=== PATIENT | male | born 1945 | race Caucasian/White ===

== ENCOUNTER 2017-02-27 20:07 | Emergency (ER) | payer MEDICARE, OTHER ==
[2015-09-29 10:44] VITALS: BMI 28.1
[~2017-02-27 20:07] MED LIST: CARDIZEM CD240 MG PO; COUMADIN5 MG PO; COUMADIN7.5 MG PO; GLUCOPHAGE500 MG PO; GLUCOTROL 5 MG T5 MG PO; LISINOPRIL5 MG PO; PROZAC20 MG PO; ZOCOR80 MG PO
== END 2017-02-27 22:25 | disposition home or self-care (01) ==
LOC: D.ER 20:07
DX: S31.811A Laceration without foreign body of right buttock, initial encounter (principal); W19.XXXA Unspecified fall, initial encounter; Y93.89 Activity, other specified; Y92.017 Garden or yard in single-family (private) house as the place of occurrence of the external cause; M54.5 Low back pain; Z86.73 Personal history of transient ischemic attack (TIA), and cerebral infarction without residual deficits; I10 Essential (primary) hypertension; E11.9 Type 2 diabetes mellitus without complications

== ENCOUNTER 2017-10-30 17:38 | Emergency (ER) | payer MEDICARE, OTHER ==
[2015-09-29 10:44] VITALS: BMI 28.1
[2017-10-30 18:13] LABS: BASOPHILS 0.1 % (0-2); EOSINOPHILS 0.2 % (0-7); HEMATOCRIT 33.3 % (42.0-54.0); IMMATURE GRANULOCYTES 0.3 % (0-5); LYMPHOCYTES 10.4 % (15-50); MCH 30.2 pg (26.0-34.0); MCV 91.5 fL (80.0-100.0); MEAN PLATELET VOLUME 10.2 fL (7.4-10.4); MONOCYTES 16.5 % (2-11); NEUTROPHILS 72.5 % (40-80); PLATELET COUNT 200 10x3/uL (130-400); RBC 3.64 10x6/uL (4.20-6.10); RDW 15.2 % (11.5-14.5); WBC 9.3 10x3/uL (4.8-10.8)
[2017-10-30 18:39] LABS: ALBUMIN 3.5 g/dL (3.4-5.0); ALKALINE PHOSPHATASE 65 U/L (46-116); ALT (SGPT) 20 U/L (10-68); BILIRUBIN - TOTAL 0.39 mg/dL (0.2-1.3); CALC OSMOLALITY 286 mosm/kg (275-300); CALCIUM 8.6 mg/dL (8.5-10.1); CARBON DIOXIDE 27.2 mmol/L (21.0-32.0); CHLORIDE - SERUM 104 mmol/L (98-107); CREATININE - SERUM 0.9 mg/dL (0.6-1.3); GLUCOSE 166 mg/dL (74-106); POTASSIUM - SERUM 4.4 mmol/L (3.5-5.1); SODIUM 141 mmol/L (136-145); UREA NITROGEN 17 mg/dL (7-18); eGFR NON AFRICAN AMERICAN 88 mL/min (90-120)
[2017-10-30 19:45] LABS: APPEARANCE CLEAR (CLEAR); BILIRUBIN NEGATIVE (NEGATIVE); COLOR DK YELLOW (YELLOW); GLUCOSE NEGATIVE (NEGATIVE); KETONE MODERATE mg/dL (NEGATIVE); NITRITE NEGATIVE (NEGATIVE); PROTEIN TRACE mg/dL (NEGATIVE); SPECIFIC GRAVITY 1.025 (1.005-1.020); UROBILINOGEN NORMAL (NORMAL)
[2017-10-30 19:46] LABS: WHITE CELLS - URINE 0-5 /hpf (0-5)
[2017-10-30 19:47] LABS: MUCUS <1+ /lpf (NONE SEEN)
== END 2017-10-30 22:12 | disposition home or self-care (01) ==
LOC: D.ER 17:38
PROVIDERS: Family Medicine
DX: S70.01XA Contusion of right hip, initial encounter (principal); W01.0XXA Fall on same level from slipping, tripping and stumbling without subsequent striking against object, initial encounter; Y93.89 Activity, other specified; Y92.019 Unspecified place in single-family (private) house as the place of occurrence of the external cause; M54.5 Low back pain; Z86.73 Personal history of transient ischemic attack (TIA), and cerebral infarction without residual deficits; I10 Essential (primary) hypertension; E11.9 Type 2 diabetes mellitus without complications

== ENCOUNTER 2017-11-04 15:55 | Observation (INO) | payer MEDICARE, OTHER ==
[~2017-11-04] VITALS: Ht 172.7 cm; Wt 79.5 kg
--- NOTE | ~2017-11-04 | HP ---
PATIENT: FRANCISCO VICENTE MEDICAL RECORD: [id number] ACCOUNT: [id number] LOCATION:[id number] : 45 ADMISSION DATE: 11/04/17 HISTORY AND PHYSICAL EXAMINATION REASON FOR ADMISSION: Severe hip and right groin pain post-fall. HISTORY OF PRESENT ILLNESS: The patient is a 72-year-old male with history of remote left hemispheric CVA which has left difficulty to ambulate. The patient fell a week ago at home on his right buttocks and hip area. He was unable to ambulate whatsoever and had severe pain and came to the ED. A pelvic x-ray was performed on 10/30/2017, showing no osteopathic abnormality except for osteoarthritis of the hips, right greater than left. A chest x-ray was performed that was unremarkable. He was sent home on hydrocodone 5 mg q.4 hours. His said he has quit eating. His pain has gotten worse. He had extensive bruising on his buttocks down the back of his leg. She could not control his pain and therefore has now been admitted to observation for further evaluation. 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 PAST SURGICAL HISTORY: He had a bilateral carotid endarterectomies and spinal surgery for lumbar disc disease. Superior hole craniotomy 2013 for subdural. SOCIAL HISTORY: Remote smoker, none now, lives with his who is his 100% caregiver. HOME MEDICATIONS: [place] 5/325 one q.4-6 hours for pain, Coumadin 5 mg at 5 p.m. daily, simvastatin 80 mg at bedtime, metformin 500 mg b.i.d., Cartia XL 240 mg daily, and citalopram 20 mg daily. ALLERGIES: None known. FAMILY HISTORY: Noncontributory. REVIEW OF SYSTEMS: CONSTITUTIONAL: He has been fatigued for the last week. He had poor appetite and poor oral intake. No fever. HEENT: No recent visual change, sinus congestion, or sore throat. He has chronic trouble speaking. RESPIRATORY: No shortness of breath. CARDIAC: No chest pain. GASTROINTESTINAL: He has had some nausea without vomiting. No constipation. GENITOURINARY: He has nocturia twice nightly. MUSCULOSKELETAL: He has had severe pain in his right hip and groin area that radiates from the hip to the groin and suprapubic area. Place of his hip causes increased pain, he states. INTEGUMENT: Marked bruising in his right buttocks and posterior thigh. PSYCHIATRIC: Denies depress mood. PHYSICAL EXAMINATION: HISTORY AND PHYSICAL [id number] FRANCISCO VICENTE SR VITAL SIGNS: Blood pressure 140/90, heart rate 70 and regular. He is afebrile. HEENT: Normocephalic. Eyes are clear. Pupils are reactive. Gag is intact. NECK: Supple, with faint bruits in both carotids and healed endarterectomy scars. CHEST: Distant breath sounds without wheeze or rales. HEART: Regular rate without gallop. II/ aortic murmur noted. LUNGS: Clear. ABDOMEN: Obese, soft, nontender throughout. Bowel sounds are active. MUSCULOSKELETAL: He has contractures of his right hand. He had limited movement of his right upper extremity. Right lower extremity has limited movement, but pain with flexion at the hip and internal rotation 45 degrees. SKIN: He has marked hematoma on his buttocks extending into the right posterior gluteus. NEUROLOGIC: He is oriented to person, place, and time. He has moderate expressive aphasia. The patient. He has decreased strength in his right upper and lower extremities. PSYCHIATRIC: Mood is upbeat. INTEGUMENT: Marked ecchymosis is noted on the right buttocks and gluteus jean-pierre. LABORATORY DATA: H&H is 9.8 and 29.7, hemoglobin was 10.4. BMP is pending. Protime is pending. CT of the pelvis is pending. ASSESSMENT: 1. Fall with inability to walk and severe right hip pain, rule out occult fracture. 2. Acute anemia from chronic anticoagulation induced hemorrhage from fall. 3. Chronic atrial fibrillation. 4. Remote cerebrovascular accident. 5. Hypertension. 6. Hyperlipidemia. 7. Benign prostatic hyperplasia. 8. Osteoarthritis. PLAN: The patient will be admitted to observation. We will obtain a CT scan to rule out occult pelvic fracture and start IV fluid due to his poor nutritional intake. Monitor H&H. Further workup pending clinical course. TRANSINT:[id number] Voice Confirmation ID: [id number] DOCUMENT ID: [id number] DAO MADDEN MD at 1914 CC: [id number] DICTATION DATE: 11/04/17 173 RAIL MANAGER: 11/05/17 0029 ADM IN [place] [id number] [place] [id number]
[2017-11-04] MEDS ORDERED: CELEXA20 MG PO (16:37)
[2017-11-04 17:20] LABS: BASOPHILS 0.2 % (0-2); EOSINOPHILS 1.1 % (0-7); HEMATOCRIT 29.7 % (42.0-54.0); HEMOGLOBIN 9.8 g/dL (13.5-17.5); IMMATURE GRANULOCYTES 1.2 % (0-5); LYMPHOCYTES 10.4 % (15-50); MCH 29.9 pg (26.0-34.0); MCV 90.5 fL (80.0-100.0); MEAN PLATELET VOLUME 9.5 fL (7.4-10.4); MONOCYTES 13.4 % (2-11); NEUTROPHILS 73.7 % (40-80); RBC 3.28 10x6/uL (4.20-6.10); WBC 10.4 10x3/uL (4.8-10.8)
[2017-11-04 17:21] LABS: PLATELET COUNT 270 10x3/uL (130-400)
[2017-11-04 17:41] LABS: INR 4.05 (0.85-1.17); PROTIME 38.5 SECONDS (11.6-15.0)
[2017-11-04 17:55] LABS: CALC OSMOLALITY 284 mosm/kg (275-300); CARBON DIOXIDE 27.7 mmol/L (21.0-32.0); CHLORIDE - SERUM 102 mmol/L (98-107); CREATININE - SERUM 0.9 mg/dL (0.6-1.3); GLUCOSE 153 mg/dL (74-106); POTASSIUM - SERUM 3.8 mmol/L (3.5-5.1); SODIUM 140 mmol/L (136-145); UREA NITROGEN 22 mg/dL (7-18); eGFR NON AFRICAN AMERICAN 88 mL/min (90-120)
[2017-11-04 19:08] VITALS: BP 150/60; Ht 172.7 cm; Wt 79.5 kg
[2017-11-04 20:00] VITALS: BP 145/66
[2017-11-05 01:11] LABS: APPEARANCE CLEAR (CLEAR); BILIRUBIN 1+ (NEGATIVE); COLOR DK YELLOW (YELLOW); GLUCOSE NEGATIVE (NEGATIVE); KETONE SMALL mg/dL (NEGATIVE); NITRITE NEGATIVE (NEGATIVE); PROTEIN TRACE mg/dL (NEGATIVE); RED CELLS - URINE 0-5 /hpf (0-5); SPECIFIC GRAVITY 1.015 (1.005-1.020); UROBILINOGEN NORMAL (NORMAL); WHITE CELLS - URINE 0-5 /hpf (0-5)
[2017-11-05 04:00] VITALS: BP 130/58
[2017-11-05 04:45] LABS: BASOPHILS 0.4 % (0-2); EOSINOPHILS 2.3 % (0-7); HEMATOCRIT 26.5 % (42.0-54.0); HEMOGLOBIN 8.7 g/dL (13.5-17.5); IMMATURE GRANULOCYTES 1.7 % (0-5); LYMPHOCYTES 28.8 % (15-50); MCH 29.8 pg (26.0-34.0); MCHC 32.8 g/dL (31.0-37.0); MCV 90.8 fL (80.0-100.0); MEAN PLATELET VOLUME 9.6 fL (7.4-10.4); MONOCYTES 16.8 % (2-11); PLATELET COUNT 273 10x3/uL (130-400); RBC 2.92 10x6/uL (4.20-6.10); RDW 15.3 % (11.5-14.5)
[2017-11-05 04:46] LABS: WBC 5.2 10x3/uL (4.8-10.8)
[2017-11-05 04:54] LABS: INR 3.82 (0.85-1.17); PROTIME 36.8 SECONDS (11.6-15.0)
[2017-11-05 04:56] LABS: CALC OSMOLALITY 285 mosm/kg (275-300); CALCIUM 8.8 mg/dL (8.5-10.1); CARBON DIOXIDE 30.7 mmol/L (21.0-32.0); CHLORIDE - SERUM 105 mmol/L (98-107); CREATININE - SERUM 0.8 mg/dL (0.6-1.3); GLUCOSE 123 mg/dL (74-106); POTASSIUM - SERUM 3.8 mmol/L (3.5-5.1); SODIUM 141 mmol/L (136-145); UREA NITROGEN 23 mg/dL (7-18); eGFR NON AFRICAN AMERICAN > 90 mL/min (90-120)
[2017-11-05 08:16] VITALS: BP 122/63
[2017-11-05 12:11] VITALS: BP 141/54
[2017-11-05 15:26] VITALS: BP 133/53
[2017-11-05 20:00] VITALS: BP 163/64
[2017-11-06] VITALS: BP 155/60
[2017-11-06 04:00] VITALS: BP 158/66
[2017-11-06 04:57] LABS: BASOPHILS 0.2 % (0-2); EOSINOPHILS 2.5 % (0-7); HEMATOCRIT 26.4 % (42.0-54.0); HEMOGLOBIN 8.7 g/dL (13.5-17.5); IMMATURE GRANULOCYTES 1.4 % (0-5); LYMPHOCYTES 24.4 % (15-50); MCH 29.9 pg (26.0-34.0); MCV 90.7 fL (80.0-100.0); MEAN PLATELET VOLUME 9.6 fL (7.4-10.4); MONOCYTES 17.6 % (2-11); NEUTROPHILS 53.9 % (40-80); PLATELET COUNT 287 10x3/uL (130-400); RBC 2.91 10x6/uL (4.20-6.10); RDW 15.3 % (11.5-14.5); WBC 5.6 10x3/uL (4.8-10.8)
[2017-11-06 07:10] LABS: CALC OSMOLALITY 282 mosm/kg (275-300); CALCIUM 8.4 mg/dL (8.5-10.1); CARBON DIOXIDE 28.3 mmol/L (21.0-32.0); CHLORIDE - SERUM 106 mmol/L (98-107); CREATININE - SERUM 0.7 mg/dL (0.6-1.3); GLUCOSE 100 mg/dL (74-106); POTASSIUM - SERUM 3.7 mmol/L (3.5-5.1); SODIUM 141 mmol/L (136-145); UREA NITROGEN 18 mg/dL (7-18); eGFR NON AFRICAN AMERICAN > 90 mL/min (90-120)
[2017-11-06 08:15] VITALS: BP 151/68
[2017-11-06] MEDS ORDERED: COUMADIN5 MG PO (09:26)
[2017-11-06] MEDS ORDERED: FERROUS SULFAT325 MG PO (09:26)
[2017-11-06] MEDS ORDERED: HYDROCODONE-APA1 TAB PO (09:27)
== END 2017-11-06 12:28 | disposition home or self-care (01) ==
LOC: D.SDCHOLD 15:55 → OBSVTIME 15:57 → D.MS 16:12
PROVIDERS: Family Medicine
DX: S70.01XA Contusion of right hip, initial encounter (principal); D62 Acute posthemorrhagic anemia; W19.XXXA Unspecified fall, initial encounter; M16.0 Bilateral primary osteoarthritis of hip; Z79.01 Long term (current) use of anticoagulants; I48.2 Chronic atrial fibrillation; I10 Essential (primary) hypertension; E78.5 Hyperlipidemia, unspecified; N40.0 Benign prostatic hyperplasia without lower urinary tract symptoms

== ENCOUNTER → 2018-12-07 08:28 | Outpatient (CLI) | payer MEDICARE, OTHER ==
[2017-11-04 19:08] VITALS: BMI 26.6
[~2018-12-07 08:28] MED LIST changes: +CELEXA20 MG PO; +FERROUS SULFAT325 MG PO; +HYDROCODONE-APA1 TAB PO
== END | disposition home or self-care (01) ==
LOC: D.RAD 08:28
DX: M54.30 Sciatica, unspecified side (principal)